=== PATIENT | male | born 1960 | race Asian ===

== ENCOUNTER 2016-07-02 17:26 | Emergency (ER) | payer OTHER ==
--- NOTE | 2016-07-02 17:50 | PDOC ---
History of Present Illness - General History Source: Patient, Old Records Exam Limitations: No Limitations - History of Present Illness Initial Comments: 07/02/16 18:05 The patient is a 56 year old male, with a significant past medical history of HTN, diabetes and dialysis (M, W, F), who presents to the emergency department with a malfunctioning AV shunt. He notes that he was in dialysis today and when they finished his treatment and removed the needle, he began to bleed and the bleeding did not stop for roughly an hour. He notes that that usually he does bleed but it usually resolves within 10 minutes. He denies any kind of weakness. The patient denies chest pain, shortness of breath, headache and dizziness. Denies fever, chills, nausea, vomit, diarrhea and constipation. Denies dysuria, frequency, urgency and hematuria. Allergies: None Past surgical history: Left upper extremity AV shunt, cholecystectomy Social history: No alcohol, tobacco or drug use reported PMD - Dr. Ирина Howell <Gilbert Dahl - Last Filed: 07/02/16 21:03> <Trever Betancur - Last Filed: 07/02/16 21:13> - General Chief Complaint: AV shunt bleeding Stated Complaint: BLEEDING FROM WOUND Time Seen by Provider: 07/02/16 17:49 Past History <Gilbert Dahl - Last Filed: 07/02/16 21:03> - Past Medical History Anemia: No Asthma: No Cancer: No Cardiac Disorders: No CVA: No COPD: No CHF: No Dementia: No Diabetes: Yes Dialysis: Yes (MO/WE/FR) GI Disorders: No Disorders: No HTN: Yes Hypercholesterolemia: No Liver Disease: No Seizures: No Thyroid Disease: No - Surgical History Abdominal Surgery: Yes Cardiac Surgery: No Cholecystectomy: Yes (gallbladder 12/2010) Lung Surgery: No Neurologic Surgery: No Orthopedic Surgery: No - Psycho/Social/Smoking Cessation Hx Suicidal Ideation: No Smoking History: Never smoked Hx Alcohol Use: No Drug/Substance Use Hx: No Substance Use Type: None Hx Substance Use Treatment: No <Trever Betancur - Last Filed: 07/02/16 21:13> - Past Medical History Allergies/Adverse Reactions: Allergies Allergy/AdvReac Type Severity Reaction Status Date / Time No Known Allergies Allergy Verified 07/02/16 18:01 Home Medications: Ambulatory Orders Folic Acid/Vit Bcomp,C [Lisa-Jeramy Tablet] 0.8 mg PO DAILY 06/05/15 Hydralazine HCl 75 mg PO TID 06/05/15 Labetalol HCl 300 mg PO BID 06/05/15 Nifedipine [Nifedipine ER] 90 mg PO DAILY 06/05/15 Review of Systems - Review of Systems Able to Perform ROS?: Yes Comments:: 07/02/16 18:05 GENERAL/CONSTITUTIONAL: No fever or chills. No weakness. HEAD, EYES, EARS, NOSE AND THROAT: No change in vision. No ear pain or discharge. No sore throat. CARDIOVASCULAR: No chest pain or shortness of breath RESPIRATORY: No cough, wheezing, or hemoptysis. GASTROINTESTINAL: No nausea, vomiting, diarrhea or constipation. GENITOURINARY: No dysuria, frequency, or change in urination. MUSCULOSKELETAL: No joint or muscle swelling or pain. No neck or back pain. SKIN: No rash NEUROLOGIC: No headache, vertigo, loss of consciousness, or change in strength/ sensation. ENDOCRINE: No increased thirst. No abnormal weight change HEMATOLOGIC/LYMPHATIC: No anemia, easy bleeding, or history of blood clots. ALLERGIC/IMMUNOLOGIC: No hives or skin allergy. <Gilbert Dahl - Last Filed: 07/02/16 21:03> *Physical Exam - Vital Signs Last Vital Signs Temp Pulse Resp BP Pulse Ox 97.9 F 71 18 145/75 98 07/02/16 18:01 07/02/16 18:01 07/02/16 18:01 07/02/16 18:01 07/02/16 18:01 - Physical Exam Comments: 07/02/16 18:06 GENERAL: Awake, alert, and fully oriented, in no acute distress HEAD: No signs of trauma, normocephalic, atraumatic EYES: PERRLA, EOMI, sclera anicteric, conjunctiva clear ENT: Auricles normal inspection, hearing grossly normal, nares patent, oropharynx clear without exudates. Moist mucosa NECK: Normal ROM, supple, no lymphadenopathy, JVD, or masses LUNGS: No distress, speaks full sentences, clear to auscultation bilaterally HEART: Regular rate and rhythm, normal S1 and S2, no murmurs, rubs or gallops, peripheral pulses normal and equal bilaterally. ABDOMEN: Soft, nontender, normoactive bowel sounds. No guarding, no rebound. No masses EXTREMITIES: . +AV fistula left upper extremity with palpable thrillNormal inspection, Normal range of motion, no edema. No clubbing or cyanosis. NEUROLOGICAL: +Right sided hemiplegia, Left nasolabial fold flattening. Cranial nerves II through XII grossly intact. Normal speech, normal gait, no focal sensorimotor deficits SKIN: +Patechiae lower extremities bilaterally. Warm, Dry, normal turgor, no rashes or lesions noted. <Gilbert Dahl - Last Filed: 07/02/16 21:03> ED Treatment Course - LABORATORY CBC & Chemistry Diagram: 07/02/16 18:45 07/02/16 18:45 <Gilbert Dahl - Last Filed: 07/02/16 21:03> - LABORATORY CBC & Chemistry Diagram: 07/02/16 18:45 07/02/16 18:45 <Trever Betancur - Last Filed: 07/02/16 21:13> Medical Decision Making - Medical Decision Making 07/02/16 20:57 Dr. Benjie Vasquez was called regarding the patient at 8:51pm Dr. Vasquez was consulted regarding the patient at 8:53pm [phone] Dr. Ирина Howell was called regarding the patient at 8:58pm. Dr. Lofton covering. Dr. Lofton was consulted regarding the patient at 8:59pm [phone] <Gilbert Dahl - Last Filed: 07/02/16 21:03> - Medical Decision Making 07/02/16 21:08 Patient is a 56-year-old male with history of end-stage renal disease on hemodialysis who presents with continuous bleeding from left upper extremity AV fistula after undergoing hemodialysis. Bleeding continued for up to one hour and required application of a pressure dressing. In the ED, there is no active bleeding patient is hemodynamically stable. CBC reveals thrombocytopenia of 53. Review of previous records reveals another episode of thrombocytopenia with platelets of 83 but otherwise normal platelet count. I advised the patient of the need for admission, observation and evaluation of this significant thrombocytopenia that he has refused and will sign out AMA at this time. I informed Dr. Vasquez vascular surgery and Dr. Lofton (PMD. They're aware and will follow-up. Patient also promises to return to the ER and 12 hours for reevaluation. <Trever Betancur - Last Filed: 07/02/16 21:13> *DC/Admit/Observation/Transfer - Attestations Scribe Attestion: 07/02/16 18:05 Documentation prepared by Gilbert Dahl, acting as medical management specialist for Trever Betancur MD <Gilbert Dahl - Last Filed: 07/02/16 21:03> - Attestations Physician Attestion: 07/02/16 21:08 The documentation was prepared by the scribe under my direct supervision. I have reviewed the documentation which correctly represents the findings, medical decision-making and critical action taken by me. <Trever Betancur - Last Filed: 07/02/16 21:13> Diagnosis at time of Disposition: ESRD on dialysis Dialysis AV fistula malfunction Qualifiers: Encounter type: initial encounter Qualified Code(s): T82.590A - Other mechanical complication of surgically created arteriovenous fistula, initial encounter - Discharge Dispostion Disposition: AGAINST MEDICAL ADVICE Condition at time of disposition: Fair - Referrals Referrals: Ирина Howell MD [Primary Care Provider] - - Patient Instructions Additional Instructions: Your leaving AGAINST MEDICAL ADVICE. You are platelets are dangerously low and may contribute to the bleeding from the AV fistula. Return immediately to the ER a your earliest convenience. You're at risk of bleeding, development of shock and even .
[2016-07-02 18:02] VITALS: TEMP 97.9; BMI 23.3
[2016-07-02 18:55] LABS: BASOPHIL 1.1 % (0-2.0); EOSINOPHIL 11.6 % (0-4.5); MCH 25.2 pg (25.7-33.7); MCHC 32.4 g/dl (32.0-35.9); MEAN PLT VOLUME 9.1 fl (7.5-11.1); NEUTROPHILS 60.7 % (42.8-82.8); RDW 21.6 % (11.9-15.9); WHITE BLOOD COUNT 3.5 K/mm3 (4.0-10.0)
[2016-07-02 19:25] LABS: INR 1.02 (0.82-1.09); PROTHROMBIN TIME (PATIENT) 11.2 SEC (9.98-11.88)
[2016-07-02 20:30] LABS: PLATELET COUNT 56 K/MM3 (134-434)
[2016-07-02 20:31] LABS: ANISOCYTOSIS 1+; HYPOCHROMIA 2+; PLATELET ESTIMATE MARKEDLY DECREASED (NORMAL); POIKILOCYTOSIS 1+
[2016-07-02 20:32] LABS: TARGET CELLS 2+
[2016-07-02 21:39] VITALS: BP 144/78; PULSE 88
== END 2016-07-02 21:26 | disposition left against medical advice (07) ==
LOC: JER 17:26
DX: T82.838A Hemorrhage due to vascular prosthetic devices, implants and grafts, initial encounter (principal); T82.898A Other specified complication of vascular prosthetic devices, implants and grafts, initial encounter; I12.0 Hypertensive chronic kidney disease with stage 5 chronic kidney disease or end stage renal disease; E11.22 Type 2 diabetes mellitus with diabetic chronic kidney disease; N18.6 End stage renal disease; N17.8 Other acute kidney failure; Z99.2 Dependence on renal dialysis; D69.6 Thrombocytopenia, unspecified
CPT/HCPCS: 36415; 85025; 85610; 99284-25

== ENCOUNTER 2017-06-21 23:04 | Emergency (ER) | payer OTHER, MEDICARE ==
[2017-06-21 23:32] VITALS: BP 134/79; PULSE 74; TEMP 98; BMI 22.1
--- NOTE | 2017-06-22 00:32 | PDOC ---
History of Present Illness - General Chief Complaint: AV shunt bleeding Stated Complaint: EVALUATION Time Seen by Provider: 06/21/17 23:41 History Source: Patient - History of Present Illness Initial Comments: 06/22/17 00:30 57 year old male with bleeding to the left AV fistula since dialysis on thursday. patient report no change to bleeding since pressure dressing is applied. patient denies SOB, weakness, chest pain, NVD, abdominal pain 06/22/17 00:32 Past History - Past Medical History Allergies/Adverse Reactions: Allergies Allergy/AdvReac Type Severity Reaction Status Date / Time No Known Allergies Allergy Verified 06/22/17 00:45 Home Medications: Ambulatory Orders Folic Acid/Vit B Complex and C [Lisa-Jeramy Tablet] 0.8 mg PO DAILY 06/05/15 Hydralazine HCl 75 mg PO TID 06/05/15 Labetalol HCl 300 mg PO BID 06/05/15 Nifedipine [Nifedipine ER] 90 mg PO DAILY 06/05/15 Anemia: No Asthma: No Cancer: No Cardiac Disorders: No CVA: No COPD: No CHF: No Dementia: No Diabetes: Yes Dialysis: Yes (MO/WE/FR) GI Disorders: No Disorders: No HTN: Yes Hypercholesterolemia: No Liver Disease: No Seizures: No Thyroid Disease: No - Surgical History Abdominal Surgery: Yes Cardiac Surgery: No Cholecystectomy: Yes (gallbladder 12/2010) Lung Surgery: No Neurologic Surgery: No Orthopedic Surgery: No - Suicide/Smoking/Psychosocial Hx Smoking History: Unknown if ever smoked Hx Alcohol Use: No Drug/Substance Use Hx: No Substance Use Type: None Hx Substance Use Treatment: No *Physical Exam - Vital Signs Last Vital Signs Temp Pulse Resp BP Pulse Ox 98 F 74 16 134/79 100 06/21/17 23:31 06/21/17 23:31 06/21/17 23:31 06/21/17 23:31 06/21/17 23:31 - Physical Exam General Appearance: Yes: Appropriately Dressed Extremity: positive: Other (+ av fistula + bruit, + sensation, full rom. no hematoma noted, ) Medical Decision Making - Medical Decision Making 06/22/17 00:54 Av shunt bleeding at puncture point P; hemostat pressure dressing. *DC/Admit/Observation/Transfer Diagnosis at time of Disposition: Dialysis AV fistula malfunction Qualifiers: Encounter type: initial encounter Qualified Code(s): T82.590A - Other mechanical complication of surgically created arteriovenous fistula, initial encounter - Discharge Dispostion Disposition: HOME - Referrals Referrals: Benjie Vasquez MD [Staff Physician] - - Patient Instructions Printed Discharge Instructions: DI for Post-Surgical Bleeding Additional Instructions: apply pressure dressing. return to the ER if symptoms worsen. - Post Discharge Activity
== END 2017-06-22 01:07 | disposition home or self-care (01) ==
LOC: JER 23:04
DX: T82.838A Hemorrhage due to vascular prosthetic devices, implants and grafts, initial encounter (principal); Y83.8 Other surgical procedures as the cause of abnormal reaction of the patient, or of later complication, without mention of misadventure at the time of the procedure; Y92.89 Other specified places as the place of occurrence of the external cause
CPT/HCPCS: 99281-25

== ENCOUNTER 2018-08-30 20:27 | Emergency (ER) | payer OTHER ==
--- NOTE | 2018-08-30 21:23 | PDOC ---
Rapid Medical Evaluation Chief Complaint: Dialysis Shunt Problem Medical Evaluation: Allergies Allergy/AdvReac Type Severity Reaction Status Date / Time No Known Allergies Allergy Verified 11/30/17 09:38 08/30/18 21:21 Pt presents to the ED with complaints of: bleeding lavf after HD at 4pm. No complaints presently. Pressure dsg placed at 4pm by sister in law pt on brief exam: vss, noted dressing to left bicep with no active bleeding but noted red blood noted on guaze Pt ordered for: cbc pt to proceed to the ED Discharge Disposition - Diagnosis Bleeding from shunt - Referrals - Patient Instructions - Post Discharge Activity
[2018-08-30 21:24] VITALS: BP 164/69; PULSE 82; TEMP 97.3; BMI 23.6
[2018-08-30 21:49] LABS: BASO % 1.5 % (0-2.0); EOS % 4.6 % (0-4.5); HEMATOCRIT 28.9 % (35.4-49); HEMOGLOBIN 9.6 GM/dL (11.7-16.9); LYMPH % 48.1 % (8-40); MCH 26.6 pg (25.7-33.7); MCHC 33.4 g/dl (32.0-35.9); MEAN CELL VOLUME 79.6 fl (80-96); MEAN PLT VOLUME 9.9 fl (7.5-11.1); MONO % 12.6 % (3.8-10.2); NEUT % 33.2 % (42.8-82.8); RBC 3.63 M/mm3 (4.00-5.60); RDW 16.1 % (11.9-15.9); WHITE BLOOD COUNT 3.5 K/mm3 (4.0-10.0)
--- NOTE | 2018-08-30 22:04 | PDOC ---
History of Present Illness - General Chief Complaint: Dialysis Shunt Problem Stated Complaint: BLEEDING Time Seen by Provider: 08/30/18 22:03 - History of Present Illness Initial Comments: 08/30/18 23:01 The patient is a 58 year old male with a history of HTN, DM, ESRD on dialysis MWF who presents for evaluation of bleeding from his left AV shunt. The patient reports completing his dialysis at 2:30pm and noticed bleeding from his AV fistula at 4pm. He placed a pressure dressing and presented to the ED for further evaluation. He notes that he believe the bleeding has stopped, but has not checked the dressing. He otherwise denies any fevers, chills, SOB, lightheadedness, chest pain, nausea, vomiting, abdominal pain, or changes with urination or bowel movements. Past History - Past Medical History Allergies/Adverse Reactions: Allergies Allergy/AdvReac Type Severity Reaction Status Date / Time No Known Allergies Allergy Verified 08/30/18 21:24 Home Medications: Ambulatory Orders Folic Acid/Vit B Complex and C [Lisa-Jeramy Tablet] 0.8 mg PO DAILY 06/05/15 Hydralazine HCl 75 mg PO TID 06/05/15 Labetalol HCl 300 mg PO BID 06/05/15 Amlodipine Besylate [Norvasc -] 1 tab PO DAILY 12/28/17 Glipizide [Glipizide ER] 1 tab PO DAILY 12/28/17 Anemia: No Asthma: No Cancer: No Cardiac Disorders: No CVA: No COPD: No CHF: No Dementia: No Diabetes: Yes Dialysis: Yes (MO//FR) GI Disorders: No Disorders: No HTN: Yes Hypercholesterolemia: No Liver Disease: No Seizures: No Thyroid Disease: No - Surgical History Abdominal Surgery: Yes Cardiac Surgery: No Cholecystectomy: Yes (gallbladder 12/2010) Lung Surgery: No Neurologic Surgery: No Orthopedic Surgery: No - Immunization History Immunization Up to Date: Yes - Suicide/Smoking/Psychosocial Hx Smoking History: Never smoked Have you smoked in the past 12 months: No Information on smoking cessation initiated: No Hx Alcohol Use: No Drug/Substance Use Hx: No Substance Use Type: None Hx Substance Use Treatment: No Review of Systems - Review of Systems Comments:: 08/30/18 23:03 Constitutional: No fevers, chills, fatigue, malaise HEENT: No Rhinorrhea, nasal congestion, visual changes Cardiovascular: No chest pain, syncope, palpitations, lightheadedness Respiratory: No Cough, SOB, Hemoptysis, Gastrointestinal: No Abdominal pain, Nausea, Vomiting, Constipation, Diarrhea, Melena Genitourinary: No Dysuria, Frequency, Urgency, Hesitancy, Hematuria, Flank pain Musculoskeletal: No Myalgia, arthralgia Skin: Bleeding from left AV fistula site. No rashes, itching, bruising, pallor Neurologic: No Headache, Dizziness, Numbness, Weakness, or Tingling Psychiatric: No Hallucinations. No SI or HI *Physical Exam - Vital Signs Last Vital Signs Temp Pulse Resp BP Pulse Ox 97.3 F L 82 17 164/69 100 08/30/18 21:00 08/30/18 21:00 08/30/18 21:00 08/30/18 21:00 08/30/18 21:00 - Physical Exam Comments: 08/30/18 23:04 General Appearance: Nourished. No Apparent Distress HEENT: No Pharyngeal Erythema, Tonsillar Exudate, Tonsillar Erythema Neck: No Cervical Lymphadenopathy Respiratory/Chest: Lungs Clear, Normal Breath Sounds. No Crackles, Rales, Rhonchi, Wheezing Cardiovascular: Regular Rhythm, Regular Rate. No Murmur, Gallops, Rubs Gastrointestinal/Abdominal: Normal Bowel Sounds, Soft. No Guarding, Rebound, Tenderness Musculoskeletal: No CVA Tenderness Extremity: Left AV fistula with palpable thrill noted without any noted active bleeding. Normal Capillary Refill Integumentary: Normal Color, Dry, Warm Neurologic: Fully Oriented, Alert, Normal Mood/Affect, Normal Response, ED Treatment Course - LABORATORY CBC & Chemistry Diagram: 08/30/18 21:28 - ADDITIONAL ORDERS Additional order review: 08/30/18 21:28 RBC 3.63 L MCV 79.6 L MCHC 33.4 RDW 16.1 H MPV 9.9 Neutrophils % 33.2 L D Lymphocytes % 48.1 H D Monocytes % 12.6 H Eosinophils % 4.6 H Basophils % 1.5 Medical Decision Making - Medical Decision Making 08/30/18 23:04 The patient is a 58 year old male with a history of HTN, DM, ESRD on dialysis MWF who presents for evaluation of bleeding from his left AV shunt. The patient does not currently have any active bleeding noted on exam. He appears clinically well and the patient's fistula was redressed. However, the patient eloped prior to attending evaluation for further assessment. *DC/Admit/Observation/Transfer Diagnosis at time of Disposition: Bleeding from shunt - Discharge Dispostion Disposition: ELOPED Condition at time of disposition: Stable Decision to Admit order: No - Referrals Referrals: Ирина Howell MD [Primary Care Provider] - - Patient Instructions - Post Discharge Activity
[2018-08-30 22:26] LABS: PLATELET COUNT 81 K/MM3 (134-434); PLATELET ESTIMATE DECREASED
--- NOTE | 2018-08-30 23:02 | PDOC ---
Documentation entered by Peter Medellin SCRIBE, acting as scribe for Cynthia Erickson DO. Cynthia Erickson DO: This documentation has been prepared by the Lacie bowen Matthew, SCRIBE, under my direction and personally reviewed by me in its entirety. I confirm that the documentation accurately reflects all work, treatment, procedures, and medical decision making performed by me. Attending Attestation - Resident Resident Name: Rigoberto Mejia - ED Attending Attestation I have performed the following: I agree w/resident's findings & plan, Exceptions are as noted - HPI HPI: 08/30/18 22:53 Patient is a 58 year old male with significant past medical history of HTN, GI Bleed, Peptic Ulcer Disease, Other (colitis), Renal Insuff, Hemodialysis ( Mondays, Wednesdays, Fridays), Anemia, Diabetes Mellitus, who presents to the ED with complaints of dialysis shunt complication. Patient reports having dialysis treatment done this afternoon, where he noticed that shortly afterwards his dialysis shunt was continuously bleeding. He reports the nurses applying a compression dressing on the shunt to halt bleeding. Patient states he believes the bleeding to have stopped but states he wanted to come into the ED for further evaluation. Denies chest pain, Sob. Denies nausea, vomiting. Denies fevers, chills. Denies constipation, diarrhea. Denies contact with sick individuals, out of state travellings. Denies any other symptoms. Allergies: None Social history: No smoking. No alcohol. No illicit drugs. Surgical history: AV Fistula/Graft (left arm), Cholecystectomy (secondary to cholelithiasis) PMD: Dr. Eloisa Howell - Physicial Exam PE: 08/30/18 22:53 Patient eloped prior to my evaluation 08/30/18 23:02 - Medical Decision Making 08/30/18 23:01 58-year-old male status post dialysis requesting evaluation of a bleeding shunt Unfortunately patient eloped from the emergency department prior to my evaluation
== END 2018-08-30 23:15 | disposition left against medical advice (07) ==
LOC: JER 20:27
DX: T82.838A Hemorrhage due to vascular prosthetic devices, implants and grafts, initial encounter (principal); Y83.2 Surgical operation with anastomosis, bypass or graft as the cause of abnormal reaction of the patient, or of later complication, without mention of misadventure at the time of the procedure; Y82.8 Other medical devices associated with adverse incidents; I12.0 Hypertensive chronic kidney disease with stage 5 chronic kidney disease or end stage renal disease; E11.22 Type 2 diabetes mellitus with diabetic chronic kidney disease; N18.6 End stage renal disease; N17.8 Other acute kidney failure; Z99.2 Dependence on renal dialysis; Z79.84 Long term (current) use of oral hypoglycemic drugs
CPT/HCPCS: 36415; 85025; 99281-25

== ENCOUNTER 2018-10-21 22:22 | Emergency (ER) | payer OTHER ==
[2018-10-21 22:28] VITALS: BP 164/75; PULSE 82; TEMP 97.5; BMI 23.3
--- NOTE | 2018-10-21 23:44 | PDOC ---
Documentation entered by Rigoberto Restrepo SCRIBE, acting as scribe for Singh Starr MD. Singh Starr MD: This documentation has been prepared by the Lauro bowen Daniel, SCRIBE, under my direction and personally reviewed by me in its entirety. I confirm that the documentation accurately reflects all work, treatment, procedures, and medical decision making performed by me. History of Present Illness - General Chief Complaint: Dialysis Shunt Problem Stated Complaint: SHUNT BLEEDING Time Seen by Provider: 10/21/18 23:19 History Source: Patient Exam Limitations: No Limitations - History of Present Illness Initial Comments: 10/21/18 23:33 The patient is a 58 year old male with a past medical history of ESRD (dialysis MWF last was yesterday), traumatic brain hemorrhage s/p repair, HTN, PUD, and diabetes here today for evaluation of bleeding from dialysis fistula and cough. The patient reports that he has had a small amount of bleeding from his fistula since dialysis yesterday. He notes using gauze and changing it every few hours and denies any bleeding through the gauze or blood spurting. He also notes a cough productive of white sputum which he saw his PCP for for the past month. He had an X-ray which showed pneumonia and the patient started a Z pack but still notes the cough has not resolved. No associated bautista/cp. Patient denies headache, lightheadedness. Denies fever, chills. Denies chest pain, shortness of breath. Denies nausea, vomiting, diarrhea, abdominal pain. Allergies: NKA PCP: Ирина Howell Past History - Past Medical History Allergies/Adverse Reactions: Allergies Allergy/AdvReac Type Severity Reaction Status Date / Time No Known Allergies Allergy Verified 10/21/18 22:29 Home Medications: Ambulatory Orders Folic Acid/Vit B Complex and C [Lisa-Jeramy Tablet] 0.8 mg PO DAILY 06/05/15 Hydralazine HCl 75 mg PO TID 06/05/15 Labetalol HCl 300 mg PO BID 06/05/15 Amlodipine Besylate [Norvasc -] 1 tab PO DAILY 12/28/17 Glipizide [Glipizide ER] 1 tab PO DAILY 12/28/17 Anemia: No Asthma: No Cancer: No Cardiac Disorders: No CVA: No COPD: No CHF: No Dementia: No Diabetes: Yes Dialysis: Yes (MO/WE/FR) GI Disorders: No Disorders: No HTN: Yes Hypercholesterolemia: No Liver Disease: No Seizures: No Thyroid Disease: No - Surgical History Abdominal Surgery: Yes Cardiac Surgery: No Cholecystectomy: Yes (gallbladder 12/2010) Lung Surgery: No Neurologic Surgery: No Orthopedic Surgery: No - Immunization History Immunization Up to Date: Yes - Suicide/Smoking/Psychosocial Hx Smoking History: Never smoked Have you smoked in the past 12 months: No Hx Alcohol Use: No Drug/Substance Use Hx: No Substance Use Type: None Hx Substance Use Treatment: No Review of Systems - Review of Systems Able to Perform ROS?: Yes Comments:: 10/21/18 23:33 CONSTITUTIONAL: No reported: Fever, Chills, Diaphoresis, Generalized Weakness, Malaise, Loss of Appetite HEENT: No reported: Rhinorrhea, Nasal Congestion, Throat Pain, Throat Swelling, Difficulty Swallowing, Mouth Swelling, Ear Pain, Eye Pain, Visual Changes CARDIOVASCULAR: No reported: Chest Pain, Syncope, Palpitations, Irregular Heart Rate, Lightheadedness, Peripheral Edema RESPIRATORY: +cough No reported: Shortness of Breath, SOB with Exertion, Orthopnea, Wheezing, Stridor, Hemoptysis GASTROINTESTINAL: No reported: Abdominal pain, Abdominal Distension, Nausea, Vomiting, Diarrhea, Constipation, Melena, Hematochezia GENITOURINARY: No reported: Dysuria, Frequency, Urgency, Hesitancy, Flank Pain, Genital Pain MUSCULOSKELETAL: No reported: Myalgia, Arthralgia, Joint Swelling, Back pain, Neck Pain SKIN: +bleeding from dialysis fistula No reported: Rash, Itching, Pallor HEMEATOLOGIC/IMMUNOLOGIC: No reported: Easy Bleeding, Easy Bruising, Lymphadenopathy, Frequent infections ENDOCRINE: No reported: Unexplained Weight Gain, Unexplained Weight Loss, Heat Intolerance , Cold Intolerance NEUROLOGIC: No reported: Headache, Focal Weakness, Paresthesias, Vertigo, Lightheadedness, Unsteady Gait, Seizure, Mental Status Changes, Incontinence PSYCHIATRIC: No reported: Anxiety, Depression *Physical Exam - Vital Signs Last Vital Signs Temp Pulse Resp BP Pulse Ox 97.5 F L 82 18 164/75 98 10/21/18 22:25 10/21/18 22:25 10/21/18 22:25 10/21/18 22:25 10/21/18 22:25 - Physical Exam Comments: 10/21/18 23:36 GENERAL: The patient is awake, alert, and fully oriented, Nontoxic - in no acute distress. HEAD: Normocephalic, atraumatic. NECK: Normal range of motion, supple LUNGS: Breath sounds equal, clear to auscultation bilaterally. No wheezes, no rhonchi, no rales. HEART: Regular rate and rhythm, ABDOMEN: Soft, nontender, No guarding, no rebound. No CVA tenderness EXTREMITIES: Normal range of motion, b/l LE edema, +chronic hyperpigmentation in LE, +fistula in LUE with thrill, no active bleeding NEUROLOGICAL: No facial assymetry, Normal speech, moving all 4 ext spontaneously and symmetrically PSYCH: Normal mood, normal affect. SKIN: Warm, Dry, normal turgor, ED Treatment Course - RADIOLOGY Radiology Studies Ordered: Category Date Time Status CHEST PA & LAT [RAD] Stat Radiology 10/21/18 23:23 Ordered Medical Decision Making - Medical Decision Making 10/21/18 23:29 58y M hx of ESRD (MWF), dm, htn, presents with complaint of bleeding fistula - no active bleeding currently. pt also with cough w/o fever, bautista, hemoptysis, increased leg swelling. will obtain cxr no current bleeding. if cxr neg, anticipate dc with pmd fu *DC/Admit/Observation/Transfer Diagnosis at time of Disposition: Bleeding from shunt, Cough - Discharge Dispostion Disposition: HOME Condition at time of disposition: Stable Decision to Admit order: No - Referrals Referrals: Ирина Howell MD [Primary Care Provider] - - Patient Instructions Printed Discharge Instructions: DI for Cough -- Adult Additional Instructions: Return to the emergency department immediately with ANY new, persistent or worsening symptoms. You MUST call and follow up with your doctor in 4-5 days for further evaluation of your symptoms. Results were discussed with you. Please make sure your doctor reviews the results of your emergency evaluation. If you had any xrays during your visit, it was read preliminarily by myself, a Radiologist will review it and if there are any additional findings we will call you. - Post Discharge Activity
== END 2018-10-22 00:38 | disposition home or self-care (01) ==
LOC: JER 22:22
DX: T82.838A Hemorrhage due to vascular prosthetic devices, implants and grafts, initial encounter (principal); I12.0 Hypertensive chronic kidney disease with stage 5 chronic kidney disease or end stage renal disease; E11.22 Type 2 diabetes mellitus with diabetic chronic kidney disease; N18.6 End stage renal disease; N17.8 Other acute kidney failure; Z99.2 Dependence on renal dialysis; Z79.84 Long term (current) use of oral hypoglycemic drugs; K27.9 Peptic ulcer, site unspecified, unspecified as acute or chronic, without hemorrhage or perforation; Z87.820 Personal history of traumatic brain injury; Y83.8 Other surgical procedures as the cause of abnormal reaction of the patient, or of later complication, without mention of misadventure at the time of the procedure; Y82.8 Other medical devices associated with adverse incidents
CPT/HCPCS: 71046-TC-FY; 99282-25

== ENCOUNTER 2018-12-07 23:46 | Emergency (ER) | payer OTHER ==
[2018-12-08 00:08] VITALS: BP 154/80; PULSE 79; TEMP 98.2; BMI 23.0
--- NOTE | 2018-12-08 02:12 | PDOC ---
History of Present Illness - General Chief Complaint: Dialysis Shunt Problem Stated Complaint: SHUNT PROBLEM Time Seen by Provider: 12/08/18 02:10 Past History - Past Medical History Allergies/Adverse Reactions: Allergies Allergy/AdvReac Type Severity Reaction Status Date / Time No Known Allergies Allergy Verified 12/08/18 00:08 Home Medications: Ambulatory Orders Folic Acid/Vit B Complex and C [Lisa-Jeramy Tablet] 0.8 mg PO DAILY 06/05/15 Hydralazine HCl 75 mg PO TID 06/05/15 Labetalol HCl 300 mg PO BID 06/05/15 Amlodipine Besylate [Norvasc -] 1 tab PO DAILY 12/28/17 Glipizide [Glipizide ER] 1 tab PO DAILY 12/28/17 Anemia: No Asthma: No Cancer: No Cardiac Disorders: No CVA: No COPD: No CHF: No Dementia: No Diabetes: Yes Dialysis: Yes (MO//FR) GI Disorders: No Disorders: No HTN: Yes Hypercholesterolemia: No Liver Disease: No Seizures: No Thyroid Disease: No - Surgical History Abdominal Surgery: Yes Cardiac Surgery: No Cholecystectomy: Yes (gallbladder 12/2010) Lung Surgery: No Neurologic Surgery: No Orthopedic Surgery: No - Immunization History Immunization Up to Date: Yes - Suicide/Smoking/Psychosocial Hx Smoking History: Never smoked Have you smoked in the past 12 months: No Hx Alcohol Use: No Drug/Substance Use Hx: No Substance Use Type: None Hx Substance Use Treatment: No *Physical Exam - Vital Signs Last Vital Signs Temp Pulse Resp BP Pulse Ox 98.2 F 79 18 154/80 100 12/08/18 00:06 12/08/18 00:06 12/08/18 00:06 12/08/18 00:06 12/08/18 00:06 Medical Decision Making - Medical Decision Making 58yo M with PMH of ESRD (on dialysis MWF), traumatic brain hemorrhage s/p repair , HTN, PUD, and diabetes here today for evaluation of bleeding from dialysis fistula. Patient states the area has been bleeding since he had a full dialysis session on Thursday. He had an extra dialysis session today (Thursday) for overload and access was in a different spot. The area was still oozing at dialysis but when he took a shower at home afterwards, noted the area was spurting blood. His son helped him apply pressure to the area as well as a dressing. Not on anticoagulation. Patient denies weakness, headache, or lightheadedness. No fevers, chills, chest pain, or shortness of breath. PCP: Ирина Howell Vascular: Dr. Benjie Vasquez Block Stacker: Dr. Pineda (spelling?) ROS: Constitutional: no fever, no chills HEENT: no throat pain, no dysphagia Cardiovascular: no chest pain, no palpitations Respiratory: no cough, no shortness of breath Gastrointestinal: no abdominal pain, no nausea Genitourinary: no dysuria, no hematuria Musculoskeletal: no myalgia, no arthralgia Skin: no rash, +bleeding Neurologic: no headache, no weakness PE: General: Awake, alert, and fully oriented, in no acute distress Head: No signs of trauma Eyes: EOMI, sclera anicteric ENT: Moist mucus membranes Neck: Normal ROM, supple Lungs: Lungs clear, Normal breath sounds Cardio: Regular rhythm, S1 and S2 present Abdomen: Soft, nontender. No guarding, no rebound, no masses Extremities: Normal range of motion, Distal pulses present Left AV fistula with thrill, mild oozing located inferiorly with no spurting SKIN: Warm, Dry, normal turgor Neurologic: Cranial nerves II through XII grossly intact. Normal speech ED Courses/MDM: VSS Minimal oozing present at AV fistula Surgicel and pressure dressing applied Patient instructed to follow up with his vascular specialist Discharged with return precautions 12/08/18 02:12 *DC/Admit/Observation/Transfer Diagnosis at time of Disposition: Bleeding from shunt - Discharge Dispostion Disposition: HOME Condition at time of disposition: Stable - Referrals Referrals: Ирина Howell MD [Primary Care Provider] - Benjie Vasquez MD [Non Staff, Medical] - - Patient Instructions Additional Instructions: You came to the ED for a dialysis shunt problem. We examined the area and there was mild oozing. We placed surgicel on the area, as well as a pressure dressing. Call your vascular specialist tomorrow and make an appointment as soon as possible. Your workup is not completed until you do so. Immediate medical attention is required if you experience: significant spurting bleeding, cold arm or discoloration in the arm, severe headache, have a seizure, have focal numbness or weakness, chest pain, shortness of breath, or any new or concerning symptoms. If you think you are having an emergency, call for emergency medical services or present to the emergency department right away. - Post Discharge Activity
--- NOTE | 2018-12-08 02:52 | PDOC ---
Documentation entered by Mei Kwong SCRIBE, acting as scribe for Cynthia Erickson DO. Cynthia Erickson DO: This documentation has been prepared by the Elenita bowen Brenda, SCRIBE, under my direction and personally reviewed by me in its entirety. I confirm that the documentation accurately reflects all work , treatment, procedures, and medical decision making performed by me. Attending Attestation - Resident Resident Name: NathaliaRodyTiffany - ED Attending Attestation I have performed the following: I have examined & evaluated the patient, The case was reviewed & discussed with the resident, I agree w/resident's findings & plan, Exceptions are as noted - HPI HPI: 12/08/18 02:48 The patient is a 58 year old male, with a significant PMH of ESRD (dialysis MWF last was yesterday), traumatic brain hemorrhage s/p repair, HTN, PUD, and diabetes who presents to the emergency department for evaluation 2 days of a slow ooze of blood from left arm, where dialysis shunt was placed. Patient currently has no other complaints. The patient denies chest pain, shortness of breath, headache and dizziness. Denies any GI symptoms. Denies any urinary symptoms. Allergies: NKA Past surgical history: Repair of traumatic brain hemorrhage, cholecystectomy Social history: Denies any history of tobacco use. PCP:Ирина Howell - Physicial Exam PE: 12/08/18 02:20 Agree with resident's exam. - Medical Decision Making 12/08/18 02:51 Patient complaining of slight bleeding from his left AV graft, last dialyzed today Bleeding largely stopped the time of evaluation Surgicel placed over the wounds as the did not clinically appear to need suturing Patient advised to call his vascular surgeon in the morning
== END 2018-12-08 02:48 | disposition home or self-care (01) ==
LOC: JER 23:46
DX: T82.838A Hemorrhage due to vascular prosthetic devices, implants and grafts, initial encounter (principal); Y73.8 Miscellaneous gastroenterology and urology devices associated with adverse incidents, not elsewhere classified; Y92.018 Other place in single-family (private) house as the place of occurrence of the external cause; I12.0 Hypertensive chronic kidney disease with stage 5 chronic kidney disease or end stage renal disease; E11.22 Type 2 diabetes mellitus with diabetic chronic kidney disease; N18.6 End stage renal disease; N17.8 Other acute kidney failure; Z99.2 Dependence on renal dialysis; Z79.84 Long term (current) use of oral hypoglycemic drugs
CPT/HCPCS: 99281-25